=== PATIENT | male | born 1995 | race Caucasian/White ===

== ENCOUNTER 2018-10-02 21:07 | Emergency (ER) | payer SELFPAY ==
[~2018-10-02] VITALS: Ht 180.3 cm; Wt 91.0 kg
[2018-10-02] MEDS ORDERED: SODIUM CHLORIDE 0.9% 1,000 ML IV ONE (22:50)
[2018-10-02] MEDS ORDERED: KETOROLAC 30MG/ML VIAL IV STA (22:50)
[2018-10-02 23:23] LABS: BASOPHILS % 0.3 % (0.0-2.0); EOSINOPHILS % 0.8 % (0.0-5.0); HEMATOCRIT. 45.2 % (42.0-52.0); LYMPHOCYTES % 20.9 % (20.0-50.0); MEAN CORPUSCULAR HEMOGLOBIN 29.5 pg (28.0-32.0); MEAN CORPUSCULAR VOLUME 83.1 fL (80.0-94.0); MEAN PLATELET VOLUME 10.1 fl (7.4-10.4); MONOCYTES % 7.3 % (2.0-8.0); NEUTROPHILS % 70.7 % (40.0-76.0); PLATELET 121 x1000/uL (130-400); RED BLOOD CELL COUNT 5.44 mill/uL (4.7-6.1); RED CELL DISTRIBUTION WIDTH 13.3 % (11.6-14.6)
[2018-10-02 23:29] LABS: CHLORIDE 105 mEq/L (98-107)
[2018-10-02 23:30] LABS: INR 1.1; PROTHROMBIN TIME 11.3 sec (9.6-11.0)
[2018-10-03 00:18] LABS: CLARITY URINE CLEAR (CLEAR); COLOR URINE YELLOW (YELLOW); KETONES URINE TRACE (NEGATIVE); LEUKOCYTE ESTERASE URINE NEGATIVE (NEGATIVE); NITRITE URINE NEGATIVE (NEGATIVE); OCCULT BLOOD URINE NEGATIVE (NEGATIVE); PH URINE 5.5 (4.5-8.0); PROTEIN URINE NEGATIVE (NEGATIVE); SPECIFIC GRAVITY URINE 1.019 (1.005-1.030); UROBILINOGEN URINE 0.2 E.U./dL (0.2-1.0)
[2018-10-03] MEDS ORDERED: MORPHINE SULFATE 4 MG/ML CPJ (NOT FOR IM USE) IV ONE (01:45)
[2018-10-03] MEDS ORDERED: KCL 20MEQ/100ML PREMIX 100 ML IV ONE (02:30)
[2018-10-03] MEDS ORDERED: IOHEXOL-300 100 ML BOTTLE ONE (02:40)
[2018-10-03 05:00] VITALS: BP 124/80
== END 2018-10-03 05:11 | disposition home or self-care (01) ==
LOC: ER 21:07
DX: R10.31 Right lower quadrant pain (principal); E87.6 Hypokalemia; R91.8 Other nonspecific abnormal finding of lung field; R16.1 Splenomegaly, not elsewhere classified
CPT/HCPCS: 36415; 74177; 80053; 81003; 83690; 85025; 85610; 96365; 96366; 96375; 99284; J1885; J2270; J3480; J7030; Q9967; Z7610